=== PATIENT | female | born 1975 | race Two or more races ===

== ENCOUNTER 2023-04-17 06:24 | Day surgery (SDC) | payer OTHER | END 2023-04-17 11:00 | disposition home or self-care (01) | LOC: AMB-ENDOS 06:24 | PROVIDERS: ATTEND Surgery | DX: D12.0 Benign neoplasm of cecum (principal); K63.5 Polyp of colon; K57.30 Diverticulosis of large intestine without perforation or abscess without bleeding; K62.1 Rectal polyp; Z20.822 Contact with and (suspected) exposure to COVID-19 ==